=== PATIENT | female | born 1955 | race Asian ===

== ENCOUNTER 2017-06-02 07:18 | Day surgery (SDC) | payer OTHER ==
[~2017-06-02] VITALS: Ht 157.5 cm; Wt 64.0 kg
[2017-06-02 08:54] VITALS: BP 126/73
[2017-06-02 11:48] VITALS: BP 109/69
== END 2017-06-02 11:45 | disposition home or self-care (01) ==
LOC: GI 07:18 → OR 08:30 → GI 09:30 → OR 09:30 → GI 11:45
PROVIDERS: Internal Medicine
PROC: 0DBH8ZZ Excision of Cecum, Via Natural or Artificial Opening Endoscopic (ICD-10-PCS; principal; 2017-06-02 09:30)
PROC: 0DBN8ZZ Excision of Sigmoid Colon, Via Natural or Artificial Opening Endoscopic (ICD-10-PCS; 2017-06-02 09:30)
DX: Z12.11 Encounter for screening for malignant neoplasm of colon (principal); D12.0 Benign neoplasm of cecum; D12.5 Benign neoplasm of sigmoid colon; K64.4 Residual hemorrhoidal skin tags
CPT/HCPCS: 45378; J1200; J1610; J2250; J2310; J3010; J3490